=== PATIENT | male | born 1950 | race Caucasian/White ===

== ENCOUNTER 2021-01-24 06:52 | Day surgery (SDC) | payer MEDICARE ==
[~2021-01-24] VITALS: Ht 177.8 cm; Wt 116.9 kg
[~2021-01-24 06:52] MED LIST: BYSTOLIC5 MG PO; DIOVAN HCT 25 M1 TA1 PO; DIOVAN320 MG PO; GLUCOPHAGE1000 MG PO; JANUVIA 100MG100 MG PO; JANUVIA100 MG PO; LIPITOR 10MG10 MG; LIPITOR20 MG PO; LOZOL 2.5M2.5 MG/TAB PO; METFORMIN ER500 MG PO; NORCO 325 MG-7.1 TAB PO; PREDNISONE10 MG PO; TEKTURNA300 MG PO; TRANDATE 100MG100 MG PO
[2021-01-24] MEDS ORDERED: FARXIGA10 PO (07:20)
[2021-01-24] MEDS ORDERED: NORVASC 5MG5 MG/TAB PO (07:20)
[2021-01-24 07:38] VITALS: BP 153/77; PULSE 72; TEMP 98.4
[2021-01-24 08:50] VITALS: BP 115/74; PULSE 66
--- NOTE | 2021-01-24 08:50 | NUR ---
Pt to [facility] 3 via cart. Pt awake and alert. Pt denies pain or nausea. Pt ambulates to recliner with stand by assitance. Warm blanket provided. Muffin and soda given per request. VSS. Will continue to monitor. Call light within reach.
[2021-01-24 09:05] VITALS: BP 121/75; PULSE 64
--- NOTE | 2021-01-24 09:05 | NUR ---
Pt tolerating food and fluids without difficulties. Pt denies needs. Call light within reach.
[2021-01-24 09:20] VITALS: BP 131/75; PULSE 65
--- NOTE | 2021-01-24 09:20 | NUR ---
Pt continues to rest. Denies needs. Call light within reach.
--- NOTE | 2021-01-24 09:35 | NUR ---
IV site discontinued with all parts intact. Discharge instructions reviewed. Pt voices understanding. pt up to dress. Call light within reach.
[2021-01-24 09:42] VITALS: BP 119/82; PULSE 64
--- NOTE | 2021-01-24 09:45 | NUR ---
Pt escorted to private car via wheel chair. Pt accompanied home by his friend.
== END 2021-01-24 09:45 | disposition home or self-care (01) ==
LOC: SDCO 06:52
DX: Z12.11 Encounter for screening for malignant neoplasm of colon (principal); D12.4 Benign neoplasm of descending colon; K57.30 Diverticulosis of large intestine without perforation or abscess without bleeding; K64.0 First degree hemorrhoids; I10 Essential (primary) hypertension; G47.33 Obstructive sleep apnea (adult) (pediatric); E66.9 Obesity, unspecified; E11.9 Type 2 diabetes mellitus without complications; Z79.84 Long term (current) use of oral hypoglycemic drugs; Z20.822 Contact with and (suspected) exposure to COVID-19; Z79.899 Other long term (current) drug therapy
CPT/HCPCS: J2704; J7030